=== PATIENT | female | born 1990 | race Caucasian/White ===

== ENCOUNTER → 2016-08-13 | Outpatient (CLI) | payer BC | END | disposition home or self-care (01) | LOC: LAB.O 11:55 | PROVIDERS: ATTEND Nurse Practitioner Family | DX: N93.9 Abnormal uterine and vaginal bleeding, unspecified (principal) ==

== ENCOUNTER 2016-12-25 12:08 | Emergency (ER) | payer SELFPAY ==
[2016-12-25 12:35] VITALS: TEMP 98.5; O2SAT 100
[2016-12-25] MEDS ORDERED: traMADol HCL 50 MG TAB PO ONE (12:37)
--- NOTE | 2016-12-25 12:41 | ED.PDOC ---
History of Present Illness - General Chief Complaint: Headache Stated Complaint: Headache, Eyes matted & draining Time Seen by Provider: 12/25/16 12:16 Source: patient, RN notes reviewed, Vital Signs reviewed Exam Limitations: no limitations - History of Present Illness Initial Comments: Patient comes in with c/o migraine for the past 3 weeks. The headache is sharp and like electric shocks. Starts in the back of her head and then moves forward. She has tried multiple OTC medications w/o improvement. Reports in the past Tramadol was the only thing that worked. Imitrex & similar medications have not worked for her. She also has had red eyes with matting and purulent drainage for the past 2 weeks. Timing/Duration: constant - X 3 weeks Quality: moderate, sharp, stabbing Head Injury Location: frontal, occipital Recent Head Trauma: occasional headaches - Hx of migraines, last one was a year ago Improving Factors: medication Worsening Factors: nothing Associated Symptoms: denies symptoms Allergies/Adverse Reactions: Allergies NO KNOWN ALLERGY Allergy (Verified 06/24/14 11:52) Home Medications: Ambulatory Orders Ofloxacin (Ophth) [Ocuflox] 1 drop BOTH_EYES BID #5 ml 12/25/16 Tramadol HCl 50 mg PO Q6HR PRN #15 tab 12/25/16 hydrOXYzine HCl [Atarax] 25 mg PO BEDTIME 12/25/16 Review of Systems - Review of Systems Constitutional: States: no symptoms reported EENTM: States: see HPI. Denies: eye pain, blurred vision - Photohobia Respiratory: States: no symptoms reported Cardiology: States: no symptoms reported Gastrointestinal/Abdominal: States: no symptoms reported Musculoskeletal: States: no symptoms reported Skin: States: no symptoms reported Neurological: States: see HPI, headache. Denies: numbness, paresthesia, seizure , tingling, weakness All other Systems: No Change from Baseline Past Medical History (General) - Patient Medical History Hx Seizures: No Hx Stroke: No Hx Dementia: No Hx Asthma: No Hx of COPD: No Hx Cardiac Disorders: No Hx Congestive Heart Failure: No Hx Pacemaker: No Hx Hypertension: No Hx Thyroid Disease: No Hx Diabetes: No Hx Gastroesophageal Reflux: No Hx Renal Disease: No Hx Cancer: No Hx of HIV: No Hx Hepatitis C: No Hx MRSA: No - Vaccination History Hx Tetanus, Diphtheria Vaccination: Yes Hx Influenza Vaccination: No Hx Pneumococcal Vaccination: No - Social History Hx Tobacco Use: Yes Hx Chewing Tobacco Use: No Hx Alcohol Use: No Hx Substance Use: No Hx Substance Use Treatment: No Hx Depression: No Hx Physical Abuse: No Hx Emotional Abuse: No Hx Suspected Abuse: No - Female History Patient is a Female of Child Bearing Age (10 -59 yrs old): Yes Hx Last Menstrual Period: 08/17/15 Patient : No Family Medical History - Family History Grandparents Family History: Unknown Living Status: Still Living Hx Family Asthma: Yes Physical Exam - Physical Exam General Appearance: Alert, Comfortable, No apparent distress, Well Developed, Well Groomed, Well Hydrated, Well Nourished Eyes, Ears, Nose, Throat Exam: photophobia, other - Injected conjunctiva w/ drainage Neck: non-tender, full range of motion, supple, normal inspection Cardiovascular/Chest: regular rate, rhythm, no gallop, no JVD, no murmur Respiratory: lungs clear, normal breath sounds, no respiratory distress, no accessory muscle use Extremity: normal range of motion, normal inspection 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 Will d/c home with Rx. Departure - Departure Clinical Impression: Cluster headaches Qualifiers: Headache chronicity pattern: episodic headache Intractability: not intractable Qualified Code(s): G44.019 - Episodic cluster headache, not intractable Conjunctivitis Qualifiers: Conjunctivitis type: other mucopurulent Laterality: bilateral Qualified Code(s) : H10.023 - Other mucopurulent conjunctivitis, bilateral Time of Disposition: 13:24 Disposition: Discharge to Home or Self Care Condition: Good Departure Forms: ED Discharge - Pt. Copy, Patient Portal Self Enrollment Instructions: DI for Cluster Headache, DI for Conjunctivitis Diet: resume usual diet Activity: increase activity as tolerated Prescriptions: Tramadol HCl 50 mg PO Q6HR PRN #15 tab PRN Reason: Headache/Migraine Pain Ofloxacin (Ophth) [Ocuflox] 1 drop BOTH_EYES BID #5 ml Home Medications: Ambulatory Orders Ofloxacin (Ophth) [Ocuflox] 1 drop BOTH_EYES BID #5 ml 12/25/16 Tramadol HCl 50 mg PO Q6HR PRN #15 tab 12/25/16 hydrOXYzine HCl [Atarax] 25 mg PO BEDTIME 12/25/16
[2016-12-25 14:06] VITALS: BP 124/80
== END 2016-12-25 13:45 | disposition home or self-care (01) ==
LOC: ER 12:08
DX: G44.019 Episodic cluster headache, not intractable (principal); H10.023 Other mucopurulent conjunctivitis, bilateral; Z87.891 Personal history of nicotine dependence

== ENCOUNTER 2016-12-28 07:48 | Emergency (ER) | payer SELFPAY ==
[2016-12-28] MEDS ORDERED: diazePAM 2 MG TAB PO ONE (08:12)
[2016-12-28] MEDS ORDERED: SODIUM CHLORIDE 0.9% 1000ML 1,000 ML IVS ONE (08:12)
[2016-12-28] MEDS ORDERED: KETOROLAC TROMETHAMINE INJ 30 MG/ML VIAL IV ONE (08:12)
[2016-12-28] MEDS ORDERED: METOCLOPRAMIDE HCL INJ 10 MG/2 ML VIAL IV ONE (08:12)
[2016-12-28] MEDS ORDERED: CYCLOBENZAPRINE HCL 5 MG TAB PO ONE (10:42)
[2016-12-28] MEDS ORDERED: HYDROcodone 5MG/APAP 325MG 1 EA TAB PO ONE (10:42)
--- NOTE | 2016-12-28 10:42 | ED.PDOC ---
History of Present Illness - General Chief Complaint: Headache Time Seen by Provider: 12/28/16 07:58 Source: patient Exam Limitations: no limitations - History of Present Illness Initial Comments: the patient is a 26-year-old female presenting to the emergency room secondary to headache that has been present in some form or another for the last month. The patient had a similar period of extended headache about a year ago. She was seen and had a head CT that was normal at that time. Headache is global. A little worse in the temporal and significantly worse in the occipital area. No vision changes. She had some nausea and vomiting this morning. No syncope or near syncope. No focal neurological changes. no . no difficulties with ambulation. No altered mental status. No fever. Massaging the temporalis areas bilaterally and the cervical occipital junction actually helps symptoms. She has had a mild sore throat and runny nose for the last few days. The patient was seen a few days ago for some conjunctivitis and was also written tramadol for the headache but this has not really helped. Timing/Duration: increasing, waxing and waning Quality: moderate, pressure, throbbing Head Injury Location: occipital, global Recent Head Trauma: no recent headache/trauma, occasional headaches Improving Factors: nothing Worsening Factors: movement Associated Symptoms: fatigue, nausea/vomiting Allergies/Adverse Reactions: Allergies NO KNOWN ALLERGY Allergy (Verified 12/28/16 07:56) Home Medications: Ambulatory Orders Ofloxacin (Ophth) [Ocuflox] 1 drop BOTH_EYES BID #5 ml 12/25/16 Tramadol HCl 50 mg PO Q6HR PRN #15 tab 12/25/16 hydrOXYzine HCl [Atarax] 25 mg PO BEDTIME 12/25/16 Fllylcbuftpwr-Nesr-Kzgkcahwps [Fioricet] 1 ea PO Q8H PRN #21 tab 12/28/16 Cyclobenzaprine HCl [Flexeril] 5 mg PO TID PRN #30 tab 12/28/16 Famotidine 20 mg PO BID #30 tab 12/28/16 Montelukast [Singulair] 10 mg PO DAILY #30 tab 12/28/16 predniSONE [Prednisone] 20 mg PO DAILY #7 tab 12/28/16 Review of Systems - Review of Systems Constitutional: States: malaise EENTM: States: nose congestion, throat pain - Mild Respiratory: States: no symptoms reported Cardiology: States: no symptoms reported Gastrointestinal/Abdominal: States: nausea, vomiting Musculoskeletal: States: neck pain Skin: States: no symptoms reported Neurological: States: headache Endocrine: States: no symptoms reported All other Systems: No Change from Baseline Past Medical History (General) - Patient Medical History Hx Seizures: No Hx Stroke: No Hx Dementia: No Hx Asthma: No Hx of COPD: No Hx Cardiac Disorders: No Hx Congestive Heart Failure: No Hx Pacemaker: No Hx Hypertension: No Hx Thyroid Disease: No Hx Diabetes: No Hx Gastroesophageal Reflux: No Hx Renal Disease: No Hx Cancer: No Hx of HIV: No Hx Hepatitis C: No Hx MRSA: No - Vaccination History Hx Tetanus, Diphtheria Vaccination: Yes Hx Influenza Vaccination: No Hx Pneumococcal Vaccination: No - Social History Hx Tobacco Use: No Hx Chewing Tobacco Use: No Hx Alcohol Use: No Hx Substance Use: No Hx Substance Use Treatment: No Hx Depression: No Hx Physical Abuse: No Hx Emotional Abuse: No Hx Suspected Abuse: No - Female History Patient is a Female of Child Bearing Age (10 -59 yrs old): Yes Hx Last Menstrual Period: 08/17/15 Patient : No Family Medical History - Family History Grandparents Family History: Unknown Living Status: Still Living Hx Family Asthma: Yes Physical Exam - Physical Exam General Appearance: Alert, No apparent distress - she does have phono and photophobia at this point Eyes, Ears, Nose, Throat Exam: PERRL/EOMI, TMs normal, other - nares are boggy. Tympanic membranes are clear but with increased pressure Neck: full range of motion, other - he patient has soreness to palpation over the paracervical spinal musclesproximally and at the junction with the occipitalregion. No step-off. No trauma. No palpable masses. No limitation in range of motion. 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 Exam: normal hearing, normal speech, PERRL Coordination/Gait: normal finger to nose, normal gait Motor/Sensory: no motor deficit, no sensory deficit Skin Exam: warm/dry Comments: Vital Signs - 24 hr 12/28/16 12/28/16 12/28/16 07:56 08:45 09:32 Temperature 97.7 F Pulse Rate [ 61 61 75 Right Radial] Respiratory 20 18 16 Rate Blood Pressure 138/83 [Right Arm] O2 Sat by Pulse 100 98 99 Oximetry 12/28/16 10:10 Temperature Pulse Rate [ 72 Right Radial] Respiratory 16 Rate Blood Pressure 124/83 [Right Arm] O2 Sat by Pulse 100 Oximetry no desaturations while sleeping on pulse oximetry Progress - Progress Progress: 12/28/16 10:46 the patient is a 26-year-old female presenting to the emergency room secondary to headache that has been progressive over the last month. The patient received a dose of Reglan, a muscle relaxer and a liter of IV fluids here. She is feeling significantly better. She did have a head CT last year which was essentially normal so one has not been repeated today given radiology risks. If headache returns in spite of following measures then neurology consultation and MRI arranged by her primary care doctor may be warranted. For now the patient seems to have a significant tension type headache. She needs to keep well-hydrated. She is going to be placed on prednisone 20 mg daily for one week. She will also be written for Flexeril as a muscle relaxer for as needed use for the next week and Fioricet for as needed use for pain control for the next week. Given her history of stomach issues, I would also like her to take Pepcid twice daily for the next couple of weeks. She'll also be written for Singulair 10 mg daily for the next month. It is possible that his yearly headache pattern may be triggered by seasonal allergies given her history. ER warnings were given for any acute worsening. She should stay home from work today. Additionally she should make sure that there are no gas leaks in her car or house. - Results/Orders Results/Orders: Laboratory Tests 12/28/16 12/28/16 12/28/16 08:20 08:20 08:20 WBC 8.5 RBC 4.48 Hgb 12.8 Hct 39.3 MCV 87.7 MCH 28.6 MCHC 32.7 L RDW 15.6 H Plt Count 223 MPV 8.7 Absolute Neuts (auto) 6.30 Absolute Lymphs (auto) 1.40 Absolute Monos (auto) 0.60 Absolute Eos (auto) 0.20 Absolute Basos (auto) 0.10 Neutrophils % 73.8 Lymphocytes % 16.6 L Monocytes % 7.2 Eosinophils % 1.8 Basophils % 0.6 ESR 8 PT INR PTT (SP) D-Dimer, Quantitative Sodium 140 Potassium 3.6 Chloride 106 Carbon Dioxide 27 Anion Gap 10.6 L BUN 10 Creatinine 0.67 BUN/Creatinine Ratio 14.9 Random Glucose 104 Serum Osmolality 278.7 Calcium 9.0 Magnesium 1.8 Total Bilirubin 0.2 AST 15 ALT 9 L Alkaline Phosphatase 67 Creatine Kinase 41 CK-MB (CK-2) 0.7 CK-MB (CK-2) % Not Reportable Troponin I < 0.02 C-Reactive Protein B-Natriuretic Peptide 25.7 Serum Total Protein 7.1 Albumin 4.2 Globulin 2.9 Albumin/Globulin Ratio 1.4 Amylase 75 Lipase 27 TSH 2.20 Urine Color Urine Appearance Urine pH Ur Specific Garfield Urine Protein Urine Glucose (UA) Urine Ketones Urine Blood Urine Nitrite Urine Bilirubin Urine Urobilinogen Ur Leukocyte Esterase Urine RBC Urine WBC Ur Epithelial Cells Amorphous Sediment Urine Bacteria Urine Mucus Urine HCG, Qual 12/28/16 12/28/16 12/28/16 08:20 08:20 10:03 WBC RBC Hgb Hct MCV MCH MCHC RDW Plt Count MPV Absolute Neuts (auto) Absolute Lymphs (auto) Absolute Monos (auto) Absolute Eos (auto) Absolute Basos (auto) Neutrophils % Lymphocytes % Monocytes % Eosinophils % Basophils % ESR PT 11.2 INR 0.990 PTT (SP) 28.6 D-Dimer, Quantitative < 200 Sodium Potassium Chloride Carbon Dioxide Anion Gap BUN Creatinine BUN/Creatinine Ratio Random Glucose Serum Osmolality Calcium Magnesium Total Bilirubin AST ALT Alkaline Phosphatase Creatine Kinase CK-MB (CK-2) CK-MB (CK-2) % Troponin I C-Reactive Protein < 0.5 B-Natriuretic Peptide Serum Total Protein Albumin Globulin Albumin/Globulin Ratio Amylase Lipase TSH Urine Color Urine Appearance Urine pH Ur Specific Garfield Urine Protein Urine Glucose (UA) Urine Ketones Urine Blood Urine Nitrite Urine Bilirubin Urine Urobilinogen Ur Leukocyte Esterase Urine RBC Urine WBC Ur Epithelial Cells Amorphous Sediment Urine Bacteria Urine Mucus Urine HCG, Qual Negative 12/28/16 10:03 WBC RBC Hgb Hct MCV MCH MCHC RDW Plt Count MPV Absolute Neuts (auto) Absolute Lymphs (auto) Absolute Monos (auto) Absolute Eos (auto) Absolute Basos (auto) Neutrophils % Lymphocytes % Monocytes % Eosinophils % Basophils % ESR PT INR PTT (SP) D-Dimer, Quantitative Sodium Potassium Chloride Carbon Dioxide Anion Gap BUN Creatinine BUN/Creatinine Ratio Random Glucose Serum Osmolality Calcium Magnesium Total Bilirubin AST ALT Alkaline Phosphatase Creatine Kinase CK-MB (CK-2) CK-MB (CK-2) % Troponin I C-Reactive Protein B-Natriuretic Peptide Serum Total Protein Albumin Globulin Albumin/Globulin Ratio Amylase Lipase TSH Urine Color Stacia H Urine Appearance Sl cloudy Urine pH 5.5 Ur Specific [place]field 1.015 Urine Protein Negative Urine Glucose (UA) Negative Urine Ketones Negative Urine Blood Moderate H Urine Nitrite Negative Urine Bilirubin Negative Urine Urobilinogen 0.2 Ur Leukocyte Esterase Negative Urine RBC 20-30 H Urine WBC 0-1 Ur Epithelial Cells 0-1 Amorphous Sediment 1+ Urine Bacteria 0 Urine Mucus Moderate Urine HCG, Qual Departure - Departure Clinical Impression: Tension type headache Qualifiers: Headache chronicity pattern: unspecified pattern Intractability: not intractable Qualified Code(s): G44.209 - Tension-type headache, unspecified, not intractable Disposition: Discharge to Home or Self Care Condition: Fair Departure Forms: ED Discharge - Pt. Copy, Patient Portal Self Enrollment Instructions: Tension Headache Diet: regular diet Activity: increase activity as tolerated Prescriptions: Boxanycsueiun-Hsxw-Dkyaplylpa [Fioricet] 1 ea PO Q8H PRN #21 tab PRN Reason: Pain Cyclobenzaprine HCl [Flexeril] 5 mg PO TID PRN #30 tab PRN Reason: Muscle Spasms Famotidine 20 mg PO BID #30 tab Montelukast [Singulair] 10 mg PO DAILY #30 tab predniSONE [Prednisone] 20 mg PO DAILY #7 tab Home Medications: Ambulatory Orders Ofloxacin (Ophth) [Ocuflox] 1 drop BOTH_EYES BID #5 ml 12/25/16 Tramadol HCl 50 mg PO Q6HR PRN #15 tab 12/25/16 hydrOXYzine HCl [Atarax] 25 mg PO BEDTIME 12/25/16 Kbrvdvcaopkbc-Zqst-Lxzzexzgmo [Fioricet] 1 ea PO Q8H PRN #21 tab 12/28/16 Cyclobenzaprine HCl [Flexeril] 5 mg PO TID PRN #30 tab 12/28/16 Famotidine 20 mg PO BID #30 tab 12/28/16 Montelukast [Singulair] 10 mg PO DAILY #30 tab 12/28/16 predniSONE [Prednisone] 20 mg PO DAILY #7 tab 12/28/16 Additional Instructions: the patient is a 26-year-old female presenting to the emergency room secondary to headache that has been progressive over the last month. The patient received a dose of Reglan, a muscle relaxer and a liter of IV fluids here. She is feeling significantly better. She did have a head CT last year which was essentially normal so one has not been repeated today given radiology risks. If headache returns in spite of following measures then neurology consultation and MRI arranged by her primary care doctor may be warranted. For now the patient seems to have a significant tension type headache. She needs to keep well-hydrated. She is going to be placed on prednisone 20 mg daily for one week. She will also be written for Flexeril as a muscle relaxer for as needed use for the next week and Fioricet for as needed use for pain control for the next week. Given her history of stomach issues, I would also like her to take Pepcid twice daily for the next couple of weeks. She'll also be written for Singulair 10 mg daily for the next month. It is possible that his yearly headache pattern may be triggered by seasonal allergies given her history. ER warnings were given for any acute worsening. She should stay home from work today. Additionally she should make sure that there are no gas leaks in her car or house. additionally topical heat and stretching exercises for the neck may help with symptoms
[2016-12-28 11:31] VITALS: BP 119/66; TEMP 97; O2SAT 99
== END 2016-12-28 11:26 | disposition home or self-care (01) ==
LOC: ER 07:48
DX: G44.209 Tension-type headache, unspecified, not intractable (principal)
CPT/HCPCS: 36415; 80053; 81001; 81025; 82150; 82550; 82553; 83690; 83735; 83880; 84443; 84484; 85025; 85379; 85610; 85651; 85730; 86140; J1885; J2765; J7030

== ENCOUNTER 2017-09-17 07:40 | Emergency (ER) | payer SELFPAY ==
--- NOTE | 2017-09-17 07:58 | ED.PDOC ---
History of Present Illness - General Chief Complaint: Headache Stated Complaint: headache Time Seen by Provider: 09/17/17 07:55 Source: patient Exam Limitations: no limitations - History of Present Illness Initial Comments: Meliza Phillips 27 y/o female stated that she had been having intermittent tense throbbing headache on the occiput radiating to frontal part of head which started 7 days ago and stated since yesterday accompanied by nausea and vomiting unable to eat anything since it wont stay down.No fever,no blurry vision but with photophobia and phonopsia.Had previous same episode in the past Head -CT done was normal.No regular Md for follow up. Denies any other chronic medical problem.No history of head trauma. Timing/Duration: 1 week Quality: pressure, throbbing Head Injury Location: occipital Improving Factors: nothing Worsening Factors: nothing Associated Symptoms: nasal drainage Allergies/Adverse Reactions: Allergies NO KNOWN ALLERGY Allergy (Verified 09/17/17 08:06) Home Medications: Ambulatory Orders Ofloxacin (Ophth) [Ocuflox] 1 drop BOTH_EYES BID #5 ml 12/25/16 Tramadol HCl 50 mg PO Q6HR PRN #15 tab 12/25/16 hydrOXYzine HCl [Atarax] 25 mg PO BEDTIME 12/25/16 Tpuqfmyfkzzqq-Lbjn-Tmhuelequv [Fioricet] 1 ea PO Q8H PRN #21 tab 12/28/16 Cyclobenzaprine HCl [Flexeril] 5 mg PO TID PRN #30 tab 12/28/16 Famotidine 20 mg PO BID #30 tab 12/28/16 Montelukast [Singulair] 10 mg PO DAILY #30 tab 12/28/16 predniSONE [Prednisone] 20 mg PO DAILY #7 tab 12/28/16 Prochlorperazine Tab [Compazine Tab] 10 mg PO TID #10 tab 09/17/17 Review of Systems - Review of Systems Constitutional: States: no symptoms reported EENTM: States: see HPI, nose congestion Gastrointestinal/Abdominal: States: see HPI, vomiting Genitourinary: States: no symptoms reported Musculoskeletal: States: no symptoms reported Neurological: States: headache All other Systems: Reviewed and Negative, No Change from Baseline Past Medical History (General) - Patient Medical History Hx Seizures: No Hx Stroke: No Hx Dementia: No Hx Asthma: No Hx of COPD: No Hx Cardiac Disorders: No Hx Congestive Heart Failure: No Hx Pacemaker: No Hx Hypertension: No Hx Thyroid Disease: No Hx Diabetes: No Hx Gastroesophageal Reflux: No Hx Renal Disease: No Hx Cancer: No Hx of HIV: No Hx Hepatitis C: No Hx MRSA: No Surgical History: other - hernia repair,toes - Vaccination History Hx Tetanus, Diphtheria Vaccination: Yes Hx Influenza Vaccination: No Hx Pneumococcal Vaccination: No - Social History Hx Tobacco Use: No Hx Chewing Tobacco Use: No Hx Alcohol Use: No Hx Substance Use: No Hx Substance Use Treatment: No Hx Depression: No Hx Physical Abuse: No Hx Emotional Abuse: No Hx Suspected Abuse: No - Female History Hx Last Menstrual Period: 09/07/17 Patient : No Family Medical History - Family History Grandparents Family History: Unknown Living Status: Still Living Hx Family Asthma: Yes Hx Family;Other: migraine-brother Physical Exam - Physical Exam General Appearance: Alert, Comfortable, No apparent distress Eyes, Ears, Nose, Throat Exam: PERRL/EOMI, normal ENT inspection, pharynx normal Neck: non-tender, full range of motion, supple, trachea midline Cardiovascular/Chest: normal peripheral pulses, regular rate, rhythm, no murmur Respiratory: chest non-tender, lungs clear, normal breath sounds Gastrointestinal/Abdominal: normal bowel sounds, non tender, soft, no organomegaly Back Exam: no CVA tenderness, no vertebral tenderness Extremity: non-tender, normal inspection, no pedal edema, no calf tenderness 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, 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 Exam: normal hearing, normal speech, PERRL Motor/Sensory: no motor deficit, no sensory deficit, other - negative Romberg test Skin Exam: warm/dry, normal color Progress - Progress Progress: 09/17/17 08:18 Vital Signs - 24 hr 09/17/17 07:45 Temperature 97.6 F Pulse Rate [ 82 pulse ox] Respiratory 18 Rate Blood Pressure 146/84 [Left Arm] O2 Sat by Pulse 100 Oximetry Departure - Departure Clinical Impression: Headache Qualifiers: Headache type: unspecified Headache chronicity pattern: chronic headache Intractability: not intractable Qualified Code(s): R51 - Headache Time of Disposition: 09:52 Disposition: Discharge to Home or Self Care Condition: Good Departure Forms: ED Discharge - Pt. Copy, Patient Portal Self Enrollment Instructions: DI for Migraine, Migraine -- Adult, Migraine Headaches ( Alternative Therapy) Prescriptions: Prochlorperazine Tab [Compazine Tab] 10 mg PO TID #10 tab Home Medications: Ambulatory Orders Ofloxacin (Ophth) [Ocuflox] 1 drop BOTH_EYES BID #5 ml 12/25/16 Tramadol HCl 50 mg PO Q6HR PRN #15 tab 12/25/16 hydrOXYzine HCl [Atarax] 25 mg PO BEDTIME 12/25/16 Gexejqdwcugym-Vuyd-Jeohfkyssy [Fioricet] 1 ea PO Q8H PRN #21 tab 12/28/16 Cyclobenzaprine HCl [Flexeril] 5 mg PO TID PRN #30 tab 12/28/16 Famotidine 20 mg PO BID #30 tab 12/28/16 Montelukast [Singulair] 10 mg PO DAILY #30 tab 12/28/16 predniSONE [Prednisone] 20 mg PO DAILY #7 tab 12/28/16 Prochlorperazine Tab [Compazine Tab] 10 mg PO TID #10 tab 09/17/17 Additional Instructions: Need to sign up with primary Md for follow up [phone] call this number for your appointment
[2017-09-17] MEDS ORDERED: KETOROLAC TROMETHAMINE INJ 30 MG/ML VIAL IV ONE (08:04)
[2017-09-17] MEDS ORDERED: DEXAMETHASONE INJ 4 MG/ML VIAL IV ONE (08:04)
[2017-09-17] MEDS ORDERED: LACTATED RINGERS 1,000 ML IVS PRN (08:04)
[2017-09-17] MEDS ORDERED: METOCLOPRAMIDE HCL INJ 10 MG/2 ML VIAL IV ONE (08:04)
[2017-09-17 08:10] VITALS: O2SAT 100
[2017-09-17 10:09] VITALS: BP 124/77; TEMP 98
== END 2017-09-17 10:00 | disposition home or self-care (01) ==
LOC: ER 07:40
DX: R51 Headache (principal)
CPT/HCPCS: J1100; J1885; J2765; J7120

== ENCOUNTER 2019-02-17 13:14 | Emergency (ER) | payer SELFPAY ==
[2019-02-17 13:28] VITALS: O2SAT 99
[2019-02-17] MEDS ORDERED: KETOROLAC TROMETHAMINE INJ 30 MG/ML VIAL IV ONE (13:43)
[2019-02-17] MEDS ORDERED: SODIUM CHLORIDE 0.9% 1000ML 1,000 ML IVS ONE (13:43)
--- NOTE | 2019-02-17 13:52 | ED.PDOC ---
History of Present Illness - General Chief Complaint: ENT Problem Stated Complaint: Sore throat, bodyaches Time Seen by Provider: 02/17/19 13:23 Source: patient Exam Limitations: no limitations - History of Present Illness Initial Comments: patient comes in today with sudden onset yesterday of bad sore throat, body aches, fever, and chills. Now her ears are also hurting and she is not able to take anything down by mouth for the last 2 days. Patient has some nausea but no emesis. Patient denies any nasal congestion or cough. Patient is otherwise healthy and has no past medical history. Timing/Duration: yesterday Severity: severe EENT Location: throat Prearrival Treatment: over the counter meds - advil yesterday Improving Factors: nothing Worsening Factors: eating Associated Symptoms: fever, malaise, poor fluid intake, poor solids intake, sore throat Allergies/Adverse Reactions: Allergies NO KNOWN ALLERGY Allergy (Verified 09/17/17 08:06) Home Medications: Ambulatory Orders Nitrofurantoin Monohydrate Mac [Macrobid] 100 mg PO BID #6 capsule 02/17/19 Review of Systems - Review of Systems Constitutional: States: chills, fever, malaise EENTM: States: ear pain, throat pain. Denies: blurred vision, nose congestion, mouth swelling Respiratory: States: no symptoms reported. Denies: cough, short of breath, wheezing Cardiology: States: no symptoms reported. Denies: chest pain, palpitations, syncope Gastrointestinal/Abdominal: States: nausea. Denies: abdominal pain, constipation, diarrhea, vomiting Musculoskeletal: States: see HPI Past Medical History (General) - Patient Medical History Hx Seizures: No Hx Stroke: No Hx Dementia: No Hx Asthma: No Hx of COPD: No Hx Cardiac Disorders: No Hx Congestive Heart Failure: No Hx Pacemaker: No Hx Hypertension: No Hx Thyroid Disease: No Hx Diabetes: No Hx Gastroesophageal Reflux: No Hx Renal Disease: No Hx Cancer: No Hx of HIV: No Hx Hepatitis C: No Hx MRSA: No Surgical History: no surgical history - Vaccination History Hx Tetanus, Diphtheria Vaccination: Yes Hx Influenza Vaccination: No Hx Pneumococcal Vaccination: No - Social History Hx Tobacco Use: Yes Hx Chewing Tobacco Use: No Hx Alcohol Use: Yes - Social Hx Substance Use: No Hx Substance Use Treatment: No Hx Depression: No Hx Physical Abuse: No Hx Emotional Abuse: No Hx Suspected Abuse: No - Female History Patient is a Female of Child Bearing Age (10 -59 yrs old): Yes Hx Last Menstrual Period: 09/07/17 Patient : No Family Medical History - Family History Grandparents Family History: Unknown Living Status: Still Living Hx Family Asthma: Yes Hx Family;Other: migraine-brother Physical Exam - Physical Exam General Appearance: Alert, No apparent distress, Ill Appearing Eye Exam: bilateral normal Ear Exam: bilateral ear: auricle normal, TM normal Nasal Exam: normal inspection Throat Exam: pharynx swelling, pharynx tenderness, tonsillar exudate, tonsillar swelling Neck: non-tender, full range of motion, supple, lymphadenopathy (R), lymphadenopathy (L) Cardiovascular/Respiratory: regular rate, rhythm, no M/R/G, normal peripheral pulses, normal breath sounds, no respiratory distress Abdominal Exam: non-tender Neurologic: alert, oriented x 3 Progress - Results/Orders Results/Orders: 02/17/19 13:29 STREP A SCREEN CULTURE Stat 02/17/19 13:43 Sodium Chloride 0.9% 1000ML [Ns 1000 ml] 1,000 ml IVS ONCE 02/17/19 13:59 Urine Culture Stat 02/17/19 14:30 [id number] SODIUM [Rocephin] 1 gm Sodium Chl 0.9% 50Ml Min-Bag+ [NS 50ml MINI-BAG+] 50 ml IVPB ONCE Laboratory Results Urine Color Dk yellow (Yellow) H 02/17/19 13:59 Urine Appearance Sl cloudy (Clear) 02/17/19 13:59 Urine pH 5.5 (4.5-7.8) 02/17/19 13:59 Ur Specific [place] >= 1.030 (1.005-1.030) 02/17/19 13:59 Urine Protein 30 mg/dL 02/17/19 13:59 Urine Glucose (UA) Negative mg/dL (Negative) 02/17/19 13:59 Urine Ketones 80 mg/dL (NEGATIVE) H 02/17/19 13:59 Urine Blood Negative (Negative) 02/17/19 13:59 Urine Nitrite Positive H 02/17/19 13:59 Urine Bilirubin Moderate (NEGATIVE) 02/17/19 13:59 Urine Urobilinogen 1.0 mg/dL (0.2-1.0) 02/17/19 13:59 Ur Leukocyte Esterase Negative (Negative) 02/17/19 13:59 Urine RBC 0 /hpf 02/17/19 13:59 Urine WBC 5-10 /hpf H 02/17/19 13:59 Ur Epithelial Cells 5-10 /hpf 02/17/19 13:59 Urine Bacteria 1+ 02/17/19 13:59 Urine Mucus Moderate 02/17/19 13:59 Urine HCG, Qual Positive (NEGATIVE) 02/17/19 13:45 Monoscreen Negative (NEGATIVE) 02/17/19 13:43 Group A Strep Rapid Negative (NEGATIVE) 02/17/19 13:29 Departure - Departure Clinical Impression: Pharyngitis Qualifiers: Pharyngitis/tonsillitis etiology: unspecified etiology Qualified Code(s): J02.9 - Acute pharyngitis, unspecified UTI (urinary tract infection) Qualifiers: Urinary tract infection type: acute cystitis Hematuria presence: without hematuria Qualified Code(s): N30.00 - Acute cystitis without hematuria Qualifiers: Weeks of gestation: less than 8 weeks Qualified Code(s): Z3A.01 - Less than 8 weeks gestation of Disposition: Discharge to Home or Self Care Condition: Fair Departure Forms: ED Discharge - Pt. Copy, Patient Portal Self Enrollment Instructions: DI for Ear Pain-Adult Home Medications: Ambulatory Orders Nitrofurantoin Monohydrate Mac [Macrobid] 100 mg PO BID #6 capsule 02/17/19 Additional Instructions: salt water gargles, OTC Tylenol for pain. Follow up for and culture results in 3-4 days.
[2019-02-17] MEDS ORDERED: ACETAMINOPHEN LIQUID 160 MG/5 ML UD PO ONE (14:18)
[2019-02-17] MEDS ORDERED: cefTRIAXone SODIUM 1 GM in SODIUM CHL 0.9% 50ML MIN-BAG+ 50 ML IVPB ONE (14:30)
[2019-02-17] MEDS ORDERED: SODIUM CHL 0.9% 50ML MIN-BAG+ 50 ML IVPB ONE (14:44)
[2019-02-17] MEDS ORDERED: cefTRIAXone SODIUM 1 GM VIAL ONE (14:44)
[2019-02-17 17:06] VITALS: BP 130/86; TEMP 101
== END 2019-02-17 15:18 | disposition home or self-care (01) ==
LOC: ER 13:14
DX: O98.811 Other maternal infectious and parasitic diseases complicating pregnancy, first trimester (principal); J02.9 Acute pharyngitis, unspecified; O23.11 Infections of bladder in pregnancy, first trimester; Z3A.01 Less than 8 weeks gestation of pregnancy; Z87.891 Personal history of nicotine dependence
CPT/HCPCS: 81001; 81025; 86403; 87070; 87086; 87880; J0696; J7030; J7050

== ENCOUNTER 2019-06-28 18:58 | Emergency (ER) | payer OTHER ==
--- NOTE | 2019-06-28 19:19 | ED.PDOC ---
History of Present Illness - General Chief Complaint: Headache Stated Complaint: Headache & Head Congestion Time Seen by Provider: 06/28/19 19:17 Source: patient, RN notes reviewed, Vital Signs reviewed - History of Present Illness Initial Comments: Patient presents for sinus congestion and upper respiratory congestion over the past few days. She denies fevers, chills, nausea, vomiting, or SOB. She has had an intermittent non-productive cough. She has had recent sick contacts with similar symptoms. She is currently at 23 weeks. She states that she has had a headache from the sinus pressure. She denies any difficulty tolerating PO. Baby has been moving. Patient sees Dr. Coates with Ob/Gyne. Allergies/Adverse Reactions: Allergies NO KNOWN ALLERGY Allergy (Verified 09/17/17 08:06) Home Medications: Ambulatory Orders Fluticasone Prop 0.05% Nasal [Flonase Nasal [place]] 1 spray BNAS DAILY #1 spray 06/28/19 Review of Systems - Review of Systems Constitutional: Denies: fever EENTM: States: nose congestion Respiratory: States: cough. Denies: short of breath Cardiology: Denies: syncope Gastrointestinal/Abdominal: Denies: nausea, vomiting Genitourinary: Denies: dysuria, frequency Musculoskeletal: Denies: neck pain Neurological: Denies: headache Past Medical History (General) - Patient Medical History Hx Seizures: No Hx Stroke: No Hx Dementia: No Hx Asthma: No Hx of COPD: No Hx Cardiac Disorders: No Hx Congestive Heart Failure: No Hx Pacemaker: No Hx Hypertension: No Hx Thyroid Disease: No Hx Diabetes: No Hx Gastroesophageal Reflux: No Hx Renal Disease: No Hx Cancer: No Hx of HIV: No Hx Hepatitis C: No Hx MRSA: No - Vaccination History Hx Tetanus, Diphtheria Vaccination: Yes Hx Influenza Vaccination: No Hx Pneumococcal Vaccination: No - Social History Hx Tobacco Use: Yes Hx Chewing Tobacco Use: No Hx Alcohol Use: Yes - Social Hx Substance Use: No Hx Substance Use Treatment: No Hx Depression: No Hx Physical Abuse: No Hx Emotional Abuse: No Hx Suspected Abuse: No - Female History Hx Last Menstrual Period: 09/07/17 Patient : No Family Medical History - Family History Grandparents Family History: Unknown Living Status: Still Living Hx Family Asthma: Yes Hx Family;Other: migraine-brother Physical Exam - Physical Exam General Appearance: Alert, Comfortable, Well Developed, Well Groomed, Well Hydrated, Well Nourished Ears, Nose, Throat: hearing grossly normal, normal ENT inspection, normal pharynx, sinus pain/drainage Neck: non-tender, full range of motion, supple Respiratory: lungs clear, normal breath sounds, no respiratory distress, no accessory muscle use Cardiovascular/Chest: normal peripheral pulses, regular rate, rhythm, no edema, no gallop, no JVD Gastrointestinal/Abdominal: normal bowel sounds, non tender, soft, other - gravid uterus past umbilicus Rectal Exam: deferred Extremity: no pedal edema Progress - Progress Progress: DDx: Sinusitis, viral URI, pneumonia, influenza, strep pharyngitis, otitis media Patient presented with cough and nasal congestion. She was well appearing and non-toxic. She is hemodynamically stable. Exam was not suggestive of pneumonia, otitis media, or strep pharyngitis. Exam was consistent with Viral URI and viral sinusitis. Influenza screen was found to be negative. Will plan for discharge home with Rx for Flonase. Will follow-up with PCP for re-evaluation. 06/28/19 19:21 Influenza screen ordered. 06/28/19 19:52 Influenza negative. Bedside ultrasound significant for HR of 145 bpm. Positive movement. Will plan for discharge home. Departure - Departure Clinical Impression: Sinus headache, Viral upper respiratory infection Sinusitis Qualifiers: Sinusitis location: maxillary Chronicity: acute Recurrence: non-recurrent Qualified Code(s): J01.00 - Acute maxillary sinusitis, unspecified Time of Disposition: 19:42 Disposition: Discharge to Home or Self Care Condition: Good Departure Forms: ED Discharge - Pt. Copy, Patient Portal Self Enrollment Instructions: DI for Headache, DI for Sinus Headache, DI for Sinusitis Referrals: TRUDY COATES [Primary Care Provider] - 1-2 Weeks Prescriptions: Fluticasone Prop 0.05% Nasal [Flonase Nasal [place]] 1 spray BNAS DAILY #1 spray Home Medications: Ambulatory Orders Fluticasone Prop 0.05% Nasal [Flonase Nasal [place]] 1 spray BNAS DAILY #1 spray 06/28/19 Comments: Jan Aguiar D.O. [facility] [id number]
[2019-06-28 19:20] VITALS: TEMP 97.8
[2019-06-28 19:54] VITALS: BP 115/74; O2SAT 97
== END 2019-06-28 19:54 | disposition home or self-care (01) ==
LOC: ER 18:58
DX: O98.812 Other maternal infectious and parasitic diseases complicating pregnancy, second trimester (principal); J01.00 Acute maxillary sinusitis, unspecified; J06.9 Acute upper respiratory infection, unspecified; R51 Headache; Z3A.23 23 weeks gestation of pregnancy; Z87.891 Personal history of nicotine dependence